=== PATIENT | female | born 1945 | race Caucasian/White ===

== ENCOUNTER 2021-11-30 17:48 | Inpatient (IN) | payer OTHER ==
[~2021-11-30] VITALS: Ht 172.7 cm; Wt 69.4 kg
--- NOTE | 2021-11-30 17:58 | NUR ---
[id number] FRM HOME C/O TIGHTNESS, WAS UNPROVOKED. TACHY/SVT AT 205BPM ADENOSINE 6MG GIVEN QUARTER BACKER, CONVERTED. PT DENIES HAVING ANY CHEST PAIN, HEADACHE, AND NAUSEA AT THE MOMENT. PT ATTCHED TO MONITOR, NO SHORTNESS OF BREATH NOTED. AWAITING MD PANIAGUA.
--- NOTE | 2021-11-30 18:15 | NUR ---
TIRE MAINTENANCE TECHNICIAN: : EULOGIO OSEI [phone] NEIGHBOR: DAVID LEWIS: [phone]
--- NOTE | 2021-11-30 18:21 | NUR ---
LAB AT BEDSIDE.
--- NOTE | 2021-11-30 18:32 | NUR ---
COVID SWAB DONE AND SENT TO LAB
[2021-11-30 19:49] LABS: ALANINE AMINOTRANSFERASE 19 U/L (12-78); ALBUMIN 3.8 g/dL (3.4-5.0); ALKALINE PHOSPHATASE 67 U/L (46-116); ASPARTATE AMINOTRANSFERASE 14 U/L (15-37); BILIRUBIN,DIRECT 0.2 mg/dL (0.0-0.2); BILIRUBIN,TOTAL 0.7 mg/dL (0.2-1.0); CALCIUM, SERUM 8.9 mg/dL (8.5-10.1); CARBON DIOXIDE 29 mmol/L (21-32); CHLORIDE 99 mmol/L (98-107); CREATININE 0.9 mg/dL (0.6-1.3); GLUCOSE 157 mg/dL (74-106); POTASSIUM 4.1 mmol/L (3.5-5.1); SODIUM SERUM 133 mmol/L (136-145); TOTAL PROTEIN, SERUM 7.4 g/dL (6.4-8.2); UREA NITROGEN, BLOOD 25 mg/dL (7-18)
[2021-11-30 19:54] LABS: BASOPHILS % (AUTO) 0.4 % (0.0-2.0); EOSINOPHILS % (AUTO) 2.8 % (0.0-6.0); HEMATOCRIT 40 % (33-45); LYMPHOCYTES # (AUTO) 3.2 K/uL (0.8-4.8); LYMPHOCYTES % (AUTO) 48.1 % (20.0-44.0); MEAN CORPUSCULAR HGB CONC 33 g/dl (31.0-36.0); MEAN CORPUSCULAR VOLUME 90 fL (82-100); MONOCYTES # (AUTO) 0.5 K/uL (0.1-1.30); MONOCYTES % (AUTO) 7.8 % (2.0-12.0); NEUTROPHILS # (AUTO) 2.7 K/uL (1.8-8.9); NEUTROPHILS % (AUTO) 40.9 % (43.0-81.0); PLATELET COUNT (AUTO) 305 K/uL (150-450); RED BLOOD CELL COUNT(AUTO) 4.45 MIL/uL (4.0-5.2); WHITE BLOOD COUNT (AUTO) 6.6 K/uL (4.3-11.0)
--- NOTE | 2021-11-30 20:06 | NUR ---
FITZ SANTIAGO PAGJerman.
[2021-11-30] MEDS ORDERED: IV NS 0.9% 1,000 ML BAG IV ONE (20:30)
[2021-11-30] MEDS ORDERED: ASPIRIN 81 MG TAB.CHEW PO ONE (20:30)
[2021-11-30] MEDS ORDERED: CT SWABBABLE VALVE TRANS SET 1 EA INFUS.SET MC ONE (20:45)
[2021-11-30] MEDS ORDERED: IOHEXOL-350 100 ML VIAL IV ONE (20:45)
[2021-11-30] MEDS ORDERED: ASPIRIN 81 MG TAB.CHEW ONE (20:45)
[2021-11-30] MEDS ORDERED: IV NS 0.9% 250 ML IV ONE (20:45)
--- NOTE | 2021-11-30 20:52 | NUR ---
PT TAKEN TO CT
[2021-11-30] MEDS ORDERED: hydrALAZINE HCL IV 20 MG VIAL ONE (22:22)
[2021-11-30] MEDS ORDERED: hydrALAZINE HCL IV 20 MG VIAL IV ONE (22:30)
--- NOTE | 2021-11-30 22:38 | NUR ---
CRITICAL LAB - TROPON[facility] 116. MD AWARE
--- NOTE | 2021-11-30 22:43 | NUR ---
RAIP CALLED. WAITING ON DR TO DR CALL BACK
[2021-11-30] MEDS ORDERED: ENOXAPARIN SODIUM 80 MG/0.8 ML DISP.SYRIN SQ ONE ×2 (22:53→23:00)
[2021-11-30] MEDS ORDERED: ONDANSETRON HCL/PF 4 MG/2 ML VIAL IVP PRN (23:00)
[2021-11-30] MEDS ORDERED: MAGNESIUM HYDROXIDE 30 ML UDC PO PRN (23:00)
[2021-11-30] MEDS ORDERED: ASPIRIN 325 MG TABLET PO ONE (23:00)
[2021-11-30] MEDS ORDERED: ZOLPIDEM TARTRATE 5 MG TABLET PO PRN (23:00)
[2021-11-30] MEDS ORDERED: MAG HYDROX/AL HYDROX/SIMETH 30 ML UDC PO PRN (23:00)
[2021-11-30] MEDS ORDERED: Z GUARD REMEDY 4 OZ OINT TP PRN (23:00)
[2021-11-30] MEDS ORDERED: ASPIRIN EC 325 MG TABLET.DR PO ONE (23:10)
--- NOTE | 2021-11-30 23:11 | NUR ---
ROOM 115-1
--- NOTE | 2021-11-30 23:25 | NUR ---
CALLED AKILAH FOR REPORT, NURSE WILL CALL BACK FOR REPORT
--- NOTE | 2021-11-30 23:30 | NUR ---
Nan SUBMARINE WORKER at bedside.
--- NOTE | 2021-11-30 23:41 | NUR ---
Report given to Izabella ORTIZ for slava
--- NOTE | 2021-11-30 23:45 | NUR ---
HANDTOOLS REPAIRER ADMITTING NOTES PATIENT ARRIVED ON UNIT VIA GURNEY WITH ER NURSE. RECEIVED PATIENT LAYING AWAKE IN BED. A/O X4. PATIENT WITH REGULAR AND UNLABORED BREATHING ON ROOM AIR, TOLERATED WELL. NO SIGNS AND SYMPTOMS OF DISTRESS NOTED AT THIS TIME. NO COMPLAINS OF PAIN OR DISCOMFORT AT THIS TIME. IV ACCESS LFA G #18 SL. IV ACCESS PATENT AND INTACT. SAFETY PRECAUTIONS ENFORCED WITH BED LOCKED AND AT LOWEST POSITION. SIDE RAILS UP X2. CALL LIGHT WITHIN REACH AT ALL TIMES. WILL CONTINUE TO MONITOR PATIENT.
--- NOTE | 2021-11-30 23:55 | NUR ---
PT TRANSFERED PER ACLS PROTOCOL
[2021-12-01] VITALS: BP 163/93
[2021-12-01 04:00] VITALS: BP 143/82
--- NOTE | 2021-12-01 06:53 | NUR ---
CAMP ADVISOR CLOSING NOTES PATIENT STILL LAYING AWAKE IN BED. A/O X4. PATIENT WITH REGULAR AND UNLABORED BREATHING ON ROOM AIR, TOLERATED WELL. NO SIGNS AND SYMPTOMS OF DISTRESS NOTED AT THIS TIME. NO COMPLAINS OF PAIN OR DISCOMFORT AT THIS TIME. PATIENT ON TELE MONITOR READING SR WITH BBB AND MULTIPLE PACS @ 76 BPM. IV ACCESS LFA G #18 SL. IV ACCESS PATENT AND INTACT. SAFETY PRECAUTIONS ENFORCED WITH BED LOCKED AND AT LOWEST POSITION. SIDE RAILS UP X2. CALL LIGHT WITHIN REACH AT ALL TIMES. WILL ENDORSE CONTINUITY OF CARE TO DAY SHIFT NURSE.
[2021-12-01 06:54] LABS: BASOPHILS % (AUTO) 0.4 % (0.0-2.0); EOSINOPHILS % (AUTO) 1.9 % (0.0-6.0); HEMATOCRIT 41 % (33-45); HEMOGLOBIN 13.6 g/dL (11.5-14.8); LYMPHOCYTES # (AUTO) 2.8 K/uL (0.8-4.8); LYMPHOCYTES % (AUTO) 40.6 % (20.0-44.0); MEAN CORPUSCULAR HGB CONC 33 g/dl (31.0-36.0); MEAN CORPUSCULAR VOLUME 88 fL (82-100); MONOCYTES # (AUTO) 0.6 K/uL (0.1-1.30); MONOCYTES % (AUTO) 8.4 % (2.0-12.0); NEUTROPHILS # (AUTO) 3.4 K/uL (1.8-8.9); NEUTROPHILS % (AUTO) 48.7 % (43.0-81.0); PLATELET COUNT (AUTO) 296 K/uL (150-450); RED BLOOD CELL COUNT(AUTO) 4.65 MIL/uL (4.0-5.2); WHITE BLOOD COUNT (AUTO) 6.9 K/uL (4.3-11.0)
[2021-12-01 07:10] LABS: D-DIMER 3.67 mg/L(FEU (0.17-0.50)
[2021-12-01 07:15] LABS: CALCIUM, SERUM 8.8 mg/dL (8.5-10.1); CREATININE 0.8 mg/dL (0.6-1.3); MAGNESIUM 2.3 mg/dL (1.8-2.4); PHOSPHORUS 3.4 mg/dL (2.5-4.9); POTASSIUM 3.7 mmol/L (3.5-5.1)
--- NOTE | 2021-12-01 07:39 | NUR ---
RN OPENING NOTE RECEIVED PATIENT AWAKE, ALERT AND ORIENTED X 4, AMBULATORY. ON ROOM AIR WITH O2 SATURATION AT 95%. WITH LEFT FOREARM SALINE LOCK, INTACT AND PATENT. COMPLAINED OF MILD HEADACHE. WILL GIVE PRN MED FOR PAIN. BED LOCKED IN LOWEST POSITION. 3 GUARD RAILS RAISED, CALL SOOD WITHIN REACH, AND ALL HOSPITAL SAFETY PRECAUTIONS ARE IN PLACE. WILL CONTINUE TO MONITOR THROUGHOUT SHIFT
[2021-12-01] MEDS: ACETAMINOPHEN 325 MG TABLET PO PRN ×2 (07:49→17:10)
[2021-12-01 08:00] VITALS: BP 134/95
[2021-12-01] MEDS ORDERED: LEVO100T9 PO (08:18)
[2021-12-01] MEDS ORDERED: ROSU5TAB13 PO (08:18)
[2021-12-01] MEDS ORDERED: METF-442 PO (08:18)
[2021-12-01] MEDS ORDERED: MIRT-90 PO (08:18)
[2021-12-01] MEDS ORDERED: ATEN25TA PO (08:18)
[2021-12-01] MEDS ORDERED: DONE10TA44 PO (08:18)
[2021-12-01] MEDS ORDERED: METFORMIN 500 MG TABLET PO SCH (09:00)
[2021-12-01 09:04] LABS: THYROID STIMULATING HORMONE 0.343 uIU/mL (0.358-3.74)
[2021-12-01] MEDS: ENOXAPARIN SODIUM 60 MG/0.6 ML DISP.SYRIN SQ SCH ×2 (09:24→21:24)
[2021-12-01] MEDS: LEVOTHYROXINE SODIUM 100 MCG TABLET PO SCH (09:25)
[2021-12-01] MEDS: ASPIRIN EC 81 MG TABLET.DR PO SCH (09:25)
[2021-12-01] MEDS: LOSARTAN POTASSIUM 50 MG TABLET PO SCH (09:25)
[2021-12-01] MEDS: CARVEDILOL 12.5 MG TABLET PO SCH ×2 (09:26→21:24)
[2021-12-01] MEDS: MIRTAZAPINE 15 MG TABLET PO SCH (09:27)
[2021-12-01 12:00] VITALS: BP 106/76
[2021-12-01] MEDS ORDERED: CARB1TAB21 PO (13:56)
[2021-12-01] MEDS ORDERED: CARBIDOPA/LEVA CR 25/100MG 1 TAB.SA PO SCH (14:00)
[2021-12-01 16:00] VITALS: BP 121/69
[2021-12-01] MEDS: CARBIDOPA/LEVODOPA 25/100 MG 1 UDTAB PO SCH ×3 (16:55→21:25)
--- NOTE | 2021-12-01 18:35 | NUR ---
RN CLOSING NOTE PATIENT IS AWAKE, ALERT AND ORIENTED X 4, AMBULATORY. ON ROOM AIR WITH O2 SATURATION AT 95%. WITH LEFT FOREARM SALINE LOCK, INTACT AND PATENT. BED LOCKED IN LOWEST POSITION. 3 GUARD RAILS RAISED, CALL SOOD WITHIN REACH, AND ALL HOSPITAL SAFETY PRECAUTIONS ARE IN PLACE. ALL DUE MEDICATIONS GIVEN AND PATIENT REMAINED STABLE THROUGHOUT SHIFT. WILL ENDORSE TO COREMAKING SUPERVISOR NURSE.
--- NOTE | 2021-12-01 19:35 | NUR ---
RN NOTES RECEIVED PT FOR CONTINUITY OF CARE. PATIENT A/OX4 IN NO S/SX OF ACUTE DISTRESS AT THIS TIME; CURRENTLY ON ROOM AIR SATING >95%. WILL ENSURE SAFETY MEASURES WITHIN THE SHIFT. PATIENT BED ALARM IS ON. HEAD OF BED ELEVATED. BED IS LOCKED, IN LOWEST POSITION AND SIDE RAILS UP. CALL LIGHT WITHIN REACH OF THE PATIENT. APPLICABLE ISOLATION PRECAUTIONS IN PLACE. WILL CONTINUE TO MONITOR AND REASSESS FOR ANY CHANGES AND WILL CARRY OUT ANY ONGOING AND ACTIVE MD ORDER.
[2021-12-01 20:00] VITALS: BP 164/97
[2021-12-01] MEDS: ATORVASTATIN 10 MG TABLET PO SCH (21:25)
[2021-12-01] MEDS: DONEPEZIL 5 MG TABLET PO SCH (21:25)
[2021-12-02] VITALS: BP 132/88
[2021-12-02 04:00] VITALS: BP 142/41
--- NOTE | 2021-12-02 06:34 | NUR ---
RN CLOSING NOTE: PATIENT REMAINS IN ROOM IN NO SIGNS OF RESPIRATORY DISTRESS, PATIENT STILL ON ROOM AIR;TOLERATING WELL SATURATING @ >95% SP02. SAFETY MEASURES IMPLEMENTED, BED IN LOWEST POSITION, LOCKED, SIDE RAILS UP, CALL LIGHT WITHIN REACH. ALL NEEDS AND ORDERS ADDRESSED DURING THE SHIFT. IV ACCESS MAINTAINED INTACT, SECURED AND FLUSHING WELL. ALL DUE MEDS GIVEN ORDERED & SCHEDULED ; PATIENT TOLERATED WELL. PATIENT KEPT CLEAN AND COMFORTABLE WITHIN THE SHIFT. PATIENT ENDORSED TO INCOMING SHIFT RN WITH STABLE VITAL SIGN AND FOR CONTINUITY OF CARE.
[2021-12-02 06:43] LABS: BASOPHILS % (AUTO) 0.3 % (0.0-2.0); EOSINOPHILS % (AUTO) 3.9 % (0.0-6.0); HEMATOCRIT 39 % (33-45); HEMOGLOBIN 13.3 g/dL (11.5-14.8); LYMPHOCYTES % (AUTO) 48.4 % (20.0-44.0); MEAN CORPUSCULAR HGB CONC 34 g/dl (31.0-36.0); MEAN CORPUSCULAR VOLUME 88 fL (82-100); MONOCYTES # (AUTO) 0.5 K/uL (0.1-1.30); MONOCYTES % (AUTO) 8.7 % (2.0-12.0); NEUTROPHILS # (AUTO) 2.4 K/uL (1.8-8.9); NEUTROPHILS % (AUTO) 38.7 % (43.0-81.0); PLATELET COUNT (AUTO) 313 K/uL (150-450); RED BLOOD CELL COUNT(AUTO) 4.46 MIL/uL (4.0-5.2); WHITE BLOOD COUNT (AUTO) 6.2 K/uL (4.3-11.0)
[2021-12-02 06:45] LABS: ALBUMIN 3.4 g/dL (3.4-5.0); BILIRUBIN,TOTAL 1.1 mg/dL (0.2-1.0); CALCIUM, SERUM 9.2 mg/dL (8.5-10.1); CREATININE 0.8 mg/dL (0.6-1.3); MAGNESIUM 2.4 mg/dL (1.8-2.4); PHOSPHORUS 4.4 mg/dL (2.5-4.9); TOTAL PROTEIN, SERUM 6.9 g/dL (6.4-8.2)
--- NOTE | 2021-12-02 07:30 | NUR ---
RN OPENING NOTES RECEIVED PATIENT AWAKE, ALERT/ORIENTEDX4 ON ROOM AIR TOLERATING WELL WITH SATURATION OF 96%, BREATHING EVEN AND UNLABORED. IN NO SIGN OF ACUTE DISTRESS AT THIS TIME. IV ACCESS ON LEFT FOREARM #18,G, PATENT AND INTACT. NO SIGNS OF INFILTRATION ON SITE. ALL SAFETY MEASURES IN PLACE. PATIENT BED ALARM IS ON. HEAD OF BED ELEVATED. BED IS LOCKED, IN LOWEST POSITION AND SIDE RAILS UP. CALL LIGHT WITHIN REACH OF THE PATIENT. WILL CONTINUE TO MONITOR PATIENT AND REASSESS FOR ANY CHANGES.
[2021-12-02 08:00] VITALS: BP 154/83
[2021-12-02] MEDS: LOSARTAN POTASSIUM 50 MG TABLET PO SCH (08:27)
[2021-12-02] MEDS: MIRTAZAPINE 15 MG TABLET PO SCH (08:27)
[2021-12-02] MEDS: ASPIRIN EC 81 MG TABLET.DR PO SCH (08:27)
[2021-12-02] MEDS: LEVOTHYROXINE SODIUM 100 MCG TABLET PO SCH (08:28)
[2021-12-02] MEDS: CARBIDOPA/LEVODOPA 25/100 MG 1 UDTAB PO SCH ×4 (08:28→21:16)
[2021-12-02] MEDS: CARVEDILOL 12.5 MG TABLET PO SCH ×2 (08:28→21:16)
[2021-12-02] MEDS: ENOXAPARIN SODIUM 60 MG/0.6 ML DISP.SYRIN SQ SCH (08:29)
[2021-12-02 12:00] VITALS: BP 126/70
--- NOTE | 2021-12-02 12:51 | NUR ---
RN NOTE REPORT GIVEN TO SHRUTHI FOR CONTINUITY OF CARE.
--- NOTE | 2021-12-02 12:52 | NUR ---
RN NOTE RECEIVED PATIENT FOR VINOD.
[2021-12-02 16:00] VITALS: BP 118/74
[2021-12-02] MEDS: METFORMIN 500 MG TABLET PO SCH (16:08)
--- NOTE | 2021-12-02 18:25 | NUR ---
RN CLOSING NOTE: PATIENT REMAINS IN ROOM IN NO SIGNS OF RESPIRATORY DISTRESS, PATIENT STILL ON ROOM AIR;TOLERATING WELL SATURATING @ >95% SP02. SAFETY MEASURES IMPLEMENTED, BED IN LOWEST POSITION, LOCKED, SIDE RAILS UP, CALL LIGHT WITHIN REACH. ALL NEEDS AND ORDERS ADDRESSED DURING THE SHIFT. IV ACCESS MAINTAINED INTACT, SECURED AND FLUSHING WELL. ALL DUE MEDS GIVEN ORDERED & SCHEDULED ; PATIENT TOLERATED WELL. PATIENT KEPT CLEAN AND COMFORTABLE WITHIN THE SHIFT. ENDORSED TO ASSESSMENT NURSE FOR VINOD.
--- NOTE | 2021-12-02 19:11 | NUR ---
RN OPENING NOTE: RECEIVED CARE OF PATIENT FROM AM NURSE WHILE PATIENT IN BED, A/O X4, ABLE TO MAKE NEEDS KNOWN. PATIENT IN NO DISCOMFORT OR PAIN AT THIS TIME. PATIENT ON ROOM AIR, BREATHING EVEN AND UNLABORED, O2 SAT 95%. NO SIGNIFICANT FINDINGS UPON INITIAL NURSING ASSESSMENTS. SAFETY MEASURES IMPLEMENTED, BED IN LOWEST POSITION, LOCKED, SIDE RAILS UP, CALL LIGHT WITHIN REACH. WILL CONTINUE TO MONITOR.
[2021-12-02 20:00] VITALS: BP 110/72
[2021-12-02] MEDS: ATORVASTATIN 10 MG TABLET PO SCH (21:16)
[2021-12-02] MEDS: DONEPEZIL 5 MG TABLET PO SCH (21:16)
[2021-12-03] VITALS: BP 101/56
[2021-12-03 04:00] VITALS: BP 115/63
[2021-12-03 06:53] LABS: BASOPHILS % (AUTO) 0.5 % (0.0-2.0); EOSINOPHILS % (AUTO) 5.1 % (0.0-6.0); HEMATOCRIT 35 % (33-45); HEMOGLOBIN 11.9 g/dL (11.5-14.8); LYMPHOCYTES # (AUTO) 2.8 K/uL (0.8-4.8); LYMPHOCYTES % (AUTO) 49.8 % (20.0-44.0); MEAN CORPUSCULAR HGB CONC 34 g/dl (31.0-36.0); MEAN CORPUSCULAR VOLUME 87 fL (82-100); MONOCYTES # (AUTO) 0.6 K/uL (0.1-1.30); MONOCYTES % (AUTO) 10.4 % (2.0-12.0); NEUTROPHILS # (AUTO) 1.9 K/uL (1.8-8.9); NEUTROPHILS % (AUTO) 34.2 % (43.0-81.0); PLATELET COUNT (AUTO) 301 K/uL (150-450); RED BLOOD CELL COUNT(AUTO) 4.09 MIL/uL (4.0-5.2); WHITE BLOOD COUNT (AUTO) 5.6 K/uL (4.3-11.0)
--- NOTE | 2021-12-03 07:00 | NUR ---
RN NOTE: RECEIVED PT ON BED, A/O X4, ABLE TO MAKE NEEDS KNOWN. NO DISTRESS NOTED, ON TELE SR HR IN 70'S , PATIENT ON ROOM AIR, BREATHING EVEN AND UNLABORED, O2 SAT WNL . SAFETY MEASURES IMPLEMENTED, BED IN LOWEST POSITION, LOCKED, SIDE RAILS UP, CALL LIGHT WITHIN REACH. WILL CONTINUE TO MONITOR.
[2021-12-03 07:44] LABS: CALCIUM, SERUM 8.7 mg/dL (8.5-10.1); CREATININE 0.9 mg/dL (0.6-1.3); MAGNESIUM 2.2 mg/dL (1.8-2.4); PHOSPHORUS 4.6 mg/dL (2.5-4.9); POTASSIUM 4.2 mmol/L (3.5-5.1)
[2021-12-03 08:00] VITALS: BP 135/73
[2021-12-03] MEDS: LEVOTHYROXINE SODIUM 100 MCG TABLET PO SCH (08:17)
[2021-12-03] MEDS: ASPIRIN EC 81 MG TABLET.DR PO SCH (08:17)
[2021-12-03] MEDS: METFORMIN 500 MG TABLET PO SCH ×2 (08:18→16:21)
[2021-12-03] MEDS: CARBIDOPA/LEVODOPA 25/100 MG 1 UDTAB PO SCH ×4 (08:18→21:13)
[2021-12-03] MEDS: MIRTAZAPINE 15 MG TABLET PO SCH ×2 (08:18→09:00)
[2021-12-03] MEDS ORDERED: ENOXAPARIN SODIUM 40 MG/0.4 ML DISP.SYRIN SQ SCH (09:00)
[2021-12-03] MEDS ORDERED: METOPROLOL TARTRATE INJ 5 MG/5 ML AMPUL ONE (11:07)
[2021-12-03] MEDS ORDERED: IV NS 0.9% 250 ML IV ONE (11:07)
[2021-12-03] MEDS ORDERED: CT SWABBABLE VALVE TRANS SET 1 EA INFUS.SET MC ONE (11:07)
[2021-12-03] MEDS ORDERED: IOHEXOL-350 100 ML VIAL IV ONE (11:07)
[2021-12-03] MEDS ORDERED: NITROGLYCERIN 0.4 MG/TAB BOTTLE ONE (11:08)
[2021-12-03] MEDS: METOPROLOL TARTRATE INJ 5 MG/5 ML AMPUL IVP PRN ×2 (11:50→11:55)
[2021-12-03 12:00] VITALS: BP 123/75
[2021-12-03] MEDS ORDERED: IV NS 0.9% 500 ML IV PRN (12:00)
[2021-12-03] MEDS ORDERED: NITROGLYCERIN 4.9 GM SPRAY SL PRN (12:00)
--- NOTE | 2021-12-03 12:09 | NUR ---
CTCA DONE. PT LESLY. PROCEDURE WELL. REPORT GIVEN TO ANGEL Thacker
[2021-12-03] MEDS: LOSARTAN POTASSIUM 50 MG TABLET PO SCH (12:24)
[2021-12-03] MEDS: CARVEDILOL 12.5 MG TABLET PO SCH ×2 (12:24→21:19)
[2021-12-03 16:00] VITALS: BP 128/84
--- NOTE | 2021-12-03 16:50 | NUR ---
RN NOTES PT REQUESTING TO TALK TO DR DOVE REGARDING THE CTA RESULTS, NO CTA RESULTS ON THE PT CHART YET, RADIOLOGY DEP. AND DR DOVE NOTIFIED .
--- NOTE | 2021-12-03 18:37 | NUR ---
RN NOTES PT CAIT ANY DISTESS , HER FAMILY AT THE BEDSIDE, NO SIGNIFICANT CHANGES NOTED ON THIS SHIFT, WILL ENDORSE TO SOFTWARE ENGINEER SALES NURSE FOR CONTINUITY OF CARE .
--- NOTE | 2021-12-03 19:56 | NUR ---
RN NOTE PATIENT ALERT AND ORIENTED X4, ABLE TO MAKE NEEDS KNOWN. ON ROOM AIR, NO SOB NOTED. DENIES ANY PAIN AT THIS TIME. IV ACCESS ON LEFT FOREARM #20, PATENT AND INTACT. FLUSHED ASEPTICALLY. BED LOCKED AND IN LOWEST POSITION. CALL LIGHT WITHIN REACH. ALL NEEDS ANTICIPATED.
[2021-12-03 20:00] VITALS: BP 135/70
[2021-12-03] MEDS: ATORVASTATIN 10 MG TABLET PO SCH (21:13)
[2021-12-03] MEDS: DONEPEZIL 5 MG TABLET PO SCH (21:13)
[2021-12-04] VITALS: BP 125/70
[2021-12-04 04:00] VITALS: BP 140/71
--- NOTE | 2021-12-04 07:07 | NUR ---
RN NOTE PATIENT RESTING IN BED, ALERT AND ORIENTED X4. CONTINUES ON ROOM AIR, NO SOB NOTED. DENIES ANY PAIN AT THIS TIME. NO SIGNIFICANT CHANGES DURING THIS SHIFT. DUE MEDS GIVEN ORDERED. VOIDED X5 (800ML). BED LOCKED AND IN LOWEST POSITION. CALL LIGHT WITHIN REACH. ENDORSED TO AM SHIFT.
[2021-12-04] MEDS: LEVOTHYROXINE SODIUM 100 MCG TABLET PO SCH (07:55)
[2021-12-04 08:00] VITALS: BP 149/85
[2021-12-04] MEDS: CARBIDOPA/LEVODOPA 25/100 MG 1 UDTAB PO SCH ×2 (08:55→12:31)
[2021-12-04] MEDS: MIRTAZAPINE 15 MG TABLET PO SCH (08:55)
[2021-12-04] MEDS: LOSARTAN POTASSIUM 50 MG TABLET PO SCH (08:55)
[2021-12-04] MEDS: CARVEDILOL 12.5 MG TABLET PO SCH (08:56)
[2021-12-04] MEDS: ASPIRIN EC 81 MG TABLET.DR PO SCH (08:56)
[2021-12-04] MEDS: METFORMIN 500 MG TABLET PO SCH (08:58)
[2021-12-04] MEDS ORDERED: APIXABAN 5 MG TABLET PO SCH (09:00)
--- NOTE | 2021-12-04 09:32 | NUR ---
RN OPENING NOTE RECEIVED PT ON BED, A/O X4, ABLE TO MAKE NEEDS KNOWN. NO DISTRESS NOTED, ON TELE SR HR IN 70'S , PATIENT ON ROOM AIR, BREATHING EVEN AND UNLABORED, O2 SAT 95-97% . IV ACCESS AT LEFT AC 20G. SAFETY MEASURES IMPLEMENTED, BED IN LOWEST POSITION, LOCKED, SIDE RAILS UP, CALL LIGHT WITHIN REACH. WILL CONTINUE TO MONITOR THROUGHOUT SHIFT.
[2021-12-04 12:00] VITALS: BP 149/85
[2021-12-04] MEDS ORDERED: CARV12.52 PO (13:20)
[2021-12-04] MEDS ORDERED: LOSA50TA39 PO (13:20)
[2021-12-04] MEDS ORDERED: APIX5TAB PO (13:20)
--- NOTE | 2021-12-04 14:06 | NUR ---
DC NOTES PT DC'D TO HOME IN STABLE CONDITION. DC INSTRUCTIONS GIVEN AND EXPLAINED TO PT. PT VERBALIZED UNDERSTANDING. ALL PAPERWORK SIGNED AND COMPLETED. ALL BELONGINGS SENT. IV ACCESS REMOVED WITH NO COMPLICATIONS. PT LEFT UNIT IN STABLE CONDITION VIA WHEELCHAIR.
== END 2021-12-04 14:38 | disposition home health service (06) | DRG 282 ==
LOC: ER 17:54 → TELE1 23:18 → MEDSG1 12-04 08:58
PROVIDERS: ADMIT Nurse Practitioner Acute Care; ATTEND Nurse Practitioner Acute Care
DX: I47.1 Supraventricular tachycardia (principal); I21.A1 Myocardial infarction type 2; I45.2 Bifascicular block; E11.9 Type 2 diabetes mellitus without complications; E03.9 Hypothyroidism, unspecified; I48.91 Unspecified atrial fibrillation; I10 Essential (primary) hypertension; I48.0 Paroxysmal atrial fibrillation; Z87.891 Personal history of nicotine dependence; N32.81 Overactive bladder
CPT/HCPCS: 36415; 71045-TC; 75574; 80048-TC; 80053-TC; 80061-TC; 80076-TC; 83735-TC; 83880; 84100-TC; 84439-TC; 84443-TC; 84484-TC; 85025-TC; 85378-TC; 85610-TC; 85730-TC; 93307-TC; C9803; G0378; J0360; J1650; J3490; J7050; Q9967

== ENCOUNTER 2024-11-10 19:19 | Emergency (ER) | payer OTHER ==
[~2024-11-10] VITALS: Ht 172.7 cm; Wt 60.3 kg
[~2024-11-10 19:19] MED LIST: APIX5TAB PO; CARB1TAB21 PO; CARV12.52 PO; DONE10TA44 PO; LEVO100T9 PO; LOSA50TA39 PO; METF-442 PO; MIRT-90 PO; ROSU5TAB13 PO
[2024-11-10 19:27] VITALS: TEMP 98.9
[2024-11-10 19:30] VITALS: BP 151/97; O2SAT 97
[2024-11-10 19:58] LABS: BASOPHILS % (AUTO) 0.4 % (0.0-2.0); EOSINOPHILS # (AUTO) 0.2 K/uL (0.0-0.7); EOSINOPHILS % (AUTO) 2.5 % (0.0-6.0); HEMATOCRIT 38 % (33-45); HEMOGLOBIN 12.9 g/dL (11.5-14.8); LYMPHOCYTES # (AUTO) 2.2 K/uL (0.8-4.8); LYMPHOCYTES % (AUTO) 35.5 % (20.0-44.0); MEAN CORPUSCULAR HEMOGLOBIN 30 PG (26.0-33.0); MEAN CORPUSCULAR HGB CONC 34 g/dl (31.0-36.0); MEAN CORPUSCULAR VOLUME 88 fL (82-100); MONOCYTES # (AUTO) 0.6 K/uL (0.1-1.30); MONOCYTES % (AUTO) 10.5 % (2.0-12.0); NEUTROPHILS # (AUTO) 3.1 K/uL (1.8-8.9); NEUTROPHILS % (AUTO) 51.1 % (43.0-81.0); PLATELET COUNT (AUTO) 273 K/uL (150-450); RED BLOOD CELL COUNT(AUTO) 4.33 MIL/uL (4.0-5.2); RED CELL DISTRIBUTION WIDTH 14.1 % (11.5-15.0); WHITE BLOOD COUNT (AUTO) 6.1 K/uL (4.3-11.0)
[2024-11-10 20:22] LABS: CALCIUM, SERUM 9.3 mg/dL (8.5-10.1); CARBON DIOXIDE 29 mmol/L (21-32); CHLORIDE 100 mmol/L (98-107); CREATININE 0.7 mg/dL (0.6-1.3); GLUCOSE 196 mg/dL (74-106); POTASSIUM 3.9 mmol/L (3.5-5.1); SODIUM SERUM 135 mmol/L (136-145); UREA NITROGEN, BLOOD 17 mg/dL (7-18)
[2024-11-10 20:35] LABS: NT-PRO BNP 158 pg/mL (0-125)
[2024-11-10 21:01] LABS: APPEARANCE,URINE SLIGHTLY CLOUDY (CLEAR); BILIRUBIN,URINE NEGATIVE (NEGATIVE); BLOOD, URINE NEGATIVE Ery/uL (NEGATIVE); COLOR,URINE YELLOW (YELLOW); KETONES,URINE 1+ mg/dL (NEGATIVE); LEUKOCYTE ESTERASE ,URINE TRACE (NEGATIVE); NITRITE, URINE NEGATIVE (NEGATIVE); PROTEIN,URINE NEGATIVE (NEGATIVE); UGLUCOSE NEGATIVE (NEGATIVE); UROBILINOGEN,URINE 0.2 EU/dL (0.2)
[2024-11-10] MEDS ORDERED: ASPIRIN EC 81 MG TABLET.DR PO ONE (22:20)
[2024-11-10] MEDS ORDERED: MECLIZINE HCL 12.5 MG TABLET ONE (22:20)
[2024-11-10 22:22] LABS: BACTERIA,URINE Many /HPF (None Seen)
[2024-11-10 22:23] LABS: ADD URINE CULTURE YES; SQUAMOUS EPITHELIAL CELL,UR Few /HPF (None Seen); URINE AMORPHOUS PHOSPHATES Many /HPF (None Seen)
[2024-11-10] MEDS: ASPIRIN EC 81 MG TABLET.DR PO ONE (22:25)
[2024-11-10] MEDS: MECLIZINE HCL 12.5 MG TABLET PO ONE (22:25)
[2024-11-10] MEDS: IV NS 0.9% 1,000 ML BAG IV ONE (23:21)
== END 2024-11-11 01:25 | disposition short-term general hospital (02) ==
LOC: ER 19:32
DX: R42 Dizziness and giddiness (principal); R07.9 Chest pain, unspecified; G20.A1 Parkinson's disease without dyskinesia, without mention of fluctuations; E11.9 Type 2 diabetes mellitus without complications; G44.309 Post-traumatic headache, unspecified, not intractable; I10 Essential (primary) hypertension; R06.02 Shortness of breath; Z79.01 Long term (current) use of anticoagulants; Z79.84 Long term (current) use of oral hypoglycemic drugs; Z79.890 Hormone replacement therapy; Z79.899 Other long term (current) drug therapy; Z88.2 Allergy status to sulfonamides; Z88.5 Allergy status to narcotic agent
CPT/HCPCS: 99285; 96360; 70450; 71045; 93005; 85025; 80048; 87086; 81001; 36415; 84484 ×2; 83880; J8597; J7030